=== PATIENT | female | born 1965 | race Caucasian/White ===

== ENCOUNTER → 2016-04-06 06:19 | Day surgery (SDC) | payer BC ==
[~2016-04-06 06:19] MED LIST: Atracurium* 10 MG/ML 10 ML VIAL ONE; Buffered Lidocaine 1% SYR 3ML* 3 ML/SYR SYRINGE INTRADERM ONE; Buffered Lidocaine 1% SYR 3ML* 3 ML/SYR SYRINGE ONE; Bupivacaine 0.25% EPI 200,000* 30 ML SDV ONE; Dexamethasone IV* 4 MG/ML 1 ML (4 MG) ONE; EPHEDrine (Pressors)* 50 MG/ML VIAL ONE; Famotidine IV* 10 MG/ML 2 ML (20 mg) IV ONE; Famotidine IV* 10 MG/ML 2 ML (20 mg) ONE; Glycopyrrolate IV* 0.2 MG/ML 1 ML VIAL ONE; KETAMINE HCL* 50 MG/ML 10 ML VIAL ONE; Lidocaine 2% PF * 5 ML VIAL ONE; Midazolam* 1 MG/ML 5 ML VIAL (5 MG) ONE; Morphine INJ* 10 MG/ML 1 ML CARPUJECT ONE; Morphine INJ* 2 MG/ML 1 ML CARPUJECT IV PRN; Neostigmine Methylsulfate* 2 MG/2 ML SYRINGE ONE; Ondansetron INJ* 2 MG/ML VIAL ONE; PROCHLORPERAZINE INJ 5 MG/ML 2 ML VIAL IV PRN; Phenylephrine INJ* 10 MG/ML 1 ML VIAL (10 MG) ONE; Propofol* 10 MG/ML 20 ML BTL IV PUSH ONE; ceFAZolin 2 GM PREMIX (*) 2 GM/50 ML BAG IVPB ONE; fentaNYL* 50 MCG/ML 2 ML VIAL (100 MCG VIAL) ONE; oxyCODONE/Acetamin 5/325 MG* TAB ONE; oxyCODONE/Acetamin 5/325 MG* TAB PO PRN
[2016-04-06 07:00] LABS: Manual Entry Verification LOR0008; UR Preg Internal Control QC Line Present
--- NOTE | 2016-04-06 09:23 | PN ---
Progress Note - Progress Note Note: Preop Dx: symptomatic cholelithiasis Postop Dx: same Procedure: laparoscopic cholecystectomy Anesthesia: GET Surgeon: Ivory Asst: ROMA Connolly EBL: none Fluid: 1000 cc RL Specimen: gallbladder Findings: dictated
[2016-04-06] MEDS: fentaNYL* 50 MCG/ML 2 ML VIAL (100 MCG VIAL) IV PRN ×2 (10:32→10:41)
[2016-04-06 11:09] VITALS: BP 113/77
--- NOTE | 2016-04-07 00:26 | OP ---
DATE OF OPERATION: 04/06/16 - [facility] DATE OF : 69 SURGEON: Noam Dodson MD DATA WAREHOUSING ARCHITECT: ROMA Tran ANESTHESIOLOGIST: Dr. Guerrero ANESTHESIA: Local with general. PRE-OP DIAGNOSES: Right upper quadrant abdominal pain and cholelithiasis. POST-OP DIAGNOSES: Right upper quadrant abdominal pain and cholelithiasis. OPERATIVE PROCEDURE: Laparoscopic cholecystectomy. ESTIMATED BLOOD LOSS: Minimal. SPECIMENS: Gallbladder. COMPLICATIONS: None. DRAINS: None. WOUND CLASSIFICATION: II. DESCRIPTION OF PROCEDURE: Written informed consent was obtained, the abdomen was marked with indelible ink and preoperative antibiotics were administered. The patient was taken to the operating room, placed in a supine position. Sequential compression devices and a warming blanket were applied and general anesthesia was administered. The abdomen was prepped and draped in the usual sterile fashion. Time-out verification was completed. Next, a small transverse incision was made just above the umbilicus and the midline fascia was divided. The peritoneal cavity was entered under direct vision. A 12- mm blunt port was inserted into the abdominal cavity and the abdominal cavity was subsequently insufflated up to 15 mmHg. Under direct vision, an 11-mm epigastric port was placed and two 5-mm ports were placed in the right side of the abdominal wall. Initial visualization of the liver, stomach, and gallbladder appeared to be unremarkable. The gallbladder was bluish in color with a thin wall. No evidence of inflammation. It was not particularly distended. It was grasped at its top and elevated and retracted up over the liver bed. Dissection commenced at the infundibular area of the gallbladder where the peritoneum along the medial and lateral aspect of the gallbladder was taken down and with careful dissection, the cystic duct and cystic artery were identified as they entered the gallbladder. Critical view technique was used and I took a significant portion of the inferior part of the gallbladder off the liver bed to assure myself that these two named structures only entering the gallbladder. The cystic duct appeared to be of expected caliber and was triply clipped and divided. The cystic artery was likewise clipped and subsequently divided. The gallbladder was then removed from the liver bed using cautery and brought out through the epigastric incision in an Endo Catch bag. The liver bed was then irrigated. Hemostasis was assured. All ports were removed under direct vision of the camera. There was no abdominal wall bleeding. The umbilical fascia was closed with interrupted 0 Polysorb suture. The skin at all four incisions was approximated with subcuticular 4-0 Polysorb suture. Steri-Strips and sterile dressings were applied. The patient tolerated the procedure well and was taken to the recovery room in stable condition. [id number]/CPS #: [id number]
== END | disposition home or self-care (01) ==
LOC: OR 06:19
PROVIDERS: ATTEND Surgery
DX: K80.10 Calculus of gallbladder with chronic cholecystitis without obstruction (principal); R10.13 Epigastric pain; I10 Essential (primary) hypertension; G47.30 Sleep apnea, unspecified
CPT/HCPCS: 81025; 88304; A9270-GY; J0690; J1100; J2250; J2270; J2405; J2704; J3010

== ENCOUNTER 2018-01-05 15:28 | Emergency (ER) | payer BC ==
[2018-01-05 15:51] VITALS: BP 124/80
--- NOTE | 2018-01-05 17:03 | UC ---
Lower Extremity/Ankle HPI - HPI Summary HPI Summary: 52 yo female with right foot pain x 1 week no known injury - History of Current Complaint Chief Complaint: UCLowerExtremity Stated Complaint: FOOT PAIN Time Seen by Provider: 01/05/18 16:13 Hx Obtained From: Patient Hx Last Menstrual Period: 12/28/17 Onset/Duration: Gradual Onset, Lasting Days Severity Initially: Mild Severity Currently: None Pain Intensity: 2 Pain Scale Used: 0-10 Numeric Aggravating Factor(s): Standing, Ambulation Alleviating Factor(s): Rest, Elevation Able to Bear Weight: Yes - Allergies/Home Medications Allergies/Adverse Reactions: Allergies Allergy/AdvReac Type Severity Reaction Status Date / Time Sulfa (Sulfonamide Allergy Hives Verified 01/05/18 15:44 Antibiotics) PMH/Surg Hx/FS Hx/Imm Hx Previously Healthy: Yes Cardiovascular History: Hypertension - Surgical History Surgical History: Yes Surgery Procedure, Year, and Place: cholecystectomy 2015 - Family History Known Family History: Positive: Hypertension - Social History Alcohol Use: None Substance Use Type: None Smoking Status (MU): Never Smoked Tobacco - Immunization History Most Recent Tetanus Shot: believes so Review of Systems Constitutional: Negative Skin: Negative Eyes: Negative ENT: Negative Respiratory: Negative Cardiovascular: Negative Gastrointestinal: Negative Genitourinary: Negative Motor: Negative Neurovascular: Negative Musculoskeletal: Arthralgia Neurological: Negative Psychological: Negative All Other Systems Reviewed And Are Negative: Yes Physical Exam Triage Information Reviewed: Yes Appearance: Well-Appearing, No Pain Distress, Well-Nourished Vital Signs: Initial Vital Signs Temp 97.8 F 01/05/18 15:45 Pulse 66 01/05/18 15:45 Resp 18 01/05/18 15:45 BP 124/80 01/05/18 15:45 Pulse Ox 100 01/05/18 15:45 Vital Signs Reviewed: Yes Eyes: Positive: Conjunctiva Clear ENT: Positive: Hearing grossly normal. Negative: Pharyngeal erythema, Nasal congestion, Tonsillar swelling, Tonsillar exudate Neck: Positive: Supple, Nontender, No Lymphadenopathy Respiratory: Positive: Lungs clear, Normal breath sounds, No respiratory distress Cardiovascular: Positive: RRR, No Murmur Musculoskeletal: Positive: ROM Intact, No Edema, Other: - antalgic gait Diagnostics - Radiology No standard instances Radiology Interpretation Completed By: Radiologist Summary of Radiographic Findings: no fx Lower Extremity Course/Dx - Differential Dx/Diagnosis Provider Diagnoses: right foot tendonitis Discharge - Sign-Out/Discharge Documenting (check all that apply): Patient Departure All imaging exams completed and their final reports reviewed: Yes - Discharge Plan Condition: Stable Disposition: HOME Patient Education Materials: Tendinitis (ED) Referrals: Mere Ritter MD [Primary Care Provider] - 7 Days (if not better) Additional Instructions: aleve 1-2 twice daily with food for pain post op shoe recheck next week if not better - Billing Disposition and Condition Condition: STABLE Disposition: Home Images Feet (Multiple View): 1 - tender/pain
== END 2018-01-05 17:20 | disposition home or self-care (01) ==
LOC: UCEAST 15:28
DX: M77.51 Other enthesopathy of right foot and ankle (principal)
CPT/HCPCS: 99212; G0463